=== PATIENT | male | born 1940 | race Caucasian/White ===

== ENCOUNTER 2021-12-09 12:15 | Emergency (ER) | payer MEDICARE, BC ==
[~2021-12-09] VITALS: Ht 177.8 cm; Wt 90.7 kg
[2021-12-09] MEDS ORDERED: AMLO10TA59 PO (12:34)
[2021-12-09] MEDS ORDERED: METO-358 PO (12:34)
[2021-12-09] MEDS ORDERED: CHOLECALCIFEROL (12:34)
[2021-12-09] MEDS ORDERED: SITA1TAB2 PO (12:34)
[2021-12-09] MEDS ORDERED: LUTE20CA PO (12:34)
[2021-12-09] MEDS ORDERED: FINA5TAB11 PO (12:34)
[2021-12-09] MEDS ORDERED: LOSA100T31 PO (12:34)
--- NOTE | 2021-12-09 14:30 | NUR ---
Patient discharged to home in stable condition. Written and verbal after care instructions given. Patient verbalizes understanding of instructions. Stressed follow up or return to ER for worsening s/s.
[2021-12-09 14:52] VITALS: BP 153/61
== END 2021-12-09 14:30 | disposition home or self-care (01) ==
LOC: ER 12:23
DX: S89.91XA Unspecified injury of right lower leg, initial encounter (principal); W22.8XXA Striking against or struck by other objects, initial encounter; Y92.34 Swimming pool (public) as the place of occurrence of the external cause; Z82.49 Family history of ischemic heart disease and other diseases of the circulatory system; Z87.442 Personal history of urinary calculi; R22.41 Localized swelling, mass and lump, right lower limb; I87.8 Other specified disorders of veins; E11.9 Type 2 diabetes mellitus without complications; Z79.84 Long term (current) use of oral hypoglycemic drugs
CPT/HCPCS: 73590; 73630; A4663